=== PATIENT | female | born 1975 | race Caucasian/White ===

== ENCOUNTER 2017-08-03 12:47 | Observation (INO) | payer BC ==
--- NOTE | 2017-08-03 13:09 | ER Document Report ---
ED Medical Screen (RME) - General Chief Complaint: Chest Pain Stated Complaint: CHEST PAIN Time Seen by Provider: 08/03/17 13:09 Notes: Patient had a rather sudden onset of chest pain this morning. Has had a history of reflux but this felt different. Had a tightness in the center portion of her chest which has not gone away. Still feels heavy. Patient does not know her mother's past medical history. Her father suddenly of a heart attack at the age of 63. Grandmother also of a heart attack at unknown age. Patient has a history of lupus. 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 TRAVEL OUTSIDE OF THE [place] IN LAST 30 DAYS: No - Related Data Allergies/Adverse Reactions: Penicillins Allergy (Verified 08/03/17 13:07) Home Medications: Current Home Medications No Home Medications 08/03/17 [History] Physical Exam - Vital signs Vitals: Temp Pulse Resp BP Pulse Ox 98.2 F 88 20 130/81 H 98 08/03/17 13:00 08/03/17 13:00 08/03/17 13:00 08/03/17 13:00 08/03/17 13:00 Course - Re-evaluation Re-evalutation: 08/03/17 13:28 I have greeted and performed a rapid initial assessment of this patient. A comprehensive ED assessment and evaluation of the patient, analysis of test results and completion of the medical decision making process will be conducted by additional ED providers. Initial orders started. Cardiac monitoring ordered. - Vital Signs Vital signs: Temp Pulse Resp BP Pulse Ox 98.2 F 88 20 130/81 H 98 08/03/17 13:00 08/03/17 13:00 08/03/17 13:00 08/03/17 13:00 08/03/17 13:00
[2017-08-03] MEDS ORDERED: ASPIRIN 81 MG TABLET, CHEWABLE PO ONE (13:25)
[2017-08-03 14:12] LABS: ABSOLUTE BASOPHILS # (AUTO) 0.1 10^3/uL (0.0-0.2); ABSOLUTE EOSINOPHILS # (AUTO) 0.1 10^3/uL (0.0-0.6); ABSOLUTE LYMPHOCYTES (AUTO) 2.3 10^3/uL (0.5-4.7); ABSOLUTE MONOCYTES (AUTO) 0.7 10^3/uL (0.1-1.4); ABSOLUTE NEUT (AUTO) 5.7 10^3/uL (1.7-8.2); BASOPHILS % (AUTO) 1.3 % (0-2); EOSINOPHILS % (AUTO) 1.7 % (0-6); HEMATOCRIT 38.8 % (36.0-47.0); HEMOGLOBIN 13.3 g/dL (12.0-15.5); HGB HCT DIFFERENCE 1.1; LYMPHOCYTES % (AUTO) 25.9 % (13-45); MEAN CORPUSCULAR HGB CONC 34.3 g/dL (32.0-36.0); MEAN CORPUSCULAR VOLUME 93 fl (80-97); MONOCYTES % (AUTO) 7.4 % (3-13); RED BLOOD COUNT 4.16 10^6/uL (3.72-5.28); RED CELL DISTRIBUTION WIDTH 12.8 % (11.5-14.0); SEGMENTED NEUTROPHILS % (AUTO) 63.7 % (42-78); WHITE BLOOD COUNT 8.9 10^3/uL (4.0-10.5)
[2017-08-03] MEDS ORDERED: LIDOCAINE 2% VISCOUS SOLN 20 ML UDCUP PO ONE ×2 (14:23→17:00)
[2017-08-03] MEDS ORDERED: MAG HYDROX/AL HYDROX/SIMETH SUSP 30 ML UDCUP PO ONE ×2 (14:23→17:00)
[2017-08-03] MEDS ORDERED: METOCLOPRAMIDE HCL ORAL SOLN 10 MG/10 ML UDCUP PO ONE ×2 (14:23→17:00)
[2017-08-03 14:36] LABS: AMORPHOUS SEDIMENT,URINE TRACE /HPF; APPEARANCE,URINE SLIGHTLY-CLOUDY; BILIRUBIN,URINE NEGATIVE (NEGATIVE); GLUCOSE, URINE NEGATIVE (NEGATIVE); KETONES,URINE NEGATIVE (NEGATIVE); LEUKOCYTE ESTERASE,URINE TRACE (NEGATIVE); NITRITE,URINE NEGATIVE (NEGATIVE); PROTEIN,URINE NEGATIVE (NEGATIVE); URINE SPECIFIC GRAVITY 1.019; UROBILINOGEN,URINE NEGATIVE mg/dL (<2.0)
--- NOTE | 2017-08-03 14:36 | RADIOLOGY REPORT (SQ) ---
EXAM DESCRIPTION: CHEST PA/LAT COMPLETED DATE/TIME: 08/03/2017 2:24 pm REASON FOR STUDY: chest pain COMPARISON: None. EXAM PARAMETERS: NUMBER OF VIEWS: two views TECHNIQUE: Digital Frontal and Lateral radiographic views of the chest acquired. RADIATION DOSE: NA LIMITATIONS: none FINDINGS: LUNGS AND PLEURA: No opacities, masses or pneumothorax. No pleural effusion. MEDIASTINUM AND HILAR STRUCTURES: No masses or contour abnormalities. HEART AND VASCULAR STRUCTURES: Heart normal size. No evidence for failure. BONES: No acute findings. HARDWARE: None in the chest. OTHER: No other significant finding. IMPRESSION: NO SIGNIFICANT RADIOGRAPHIC FINDING IN THE CHEST. TECHNICAL DOCUMENTATION: JOB ID: [id number] [employer]- All Rights Reserved
--- NOTE | 2017-08-03 14:39 | ER Document Report ---
ED Cardiac - General Chief Complaint: Chest Pain Stated Complaint: CHEST PAIN Time Seen by Provider: 08/03/17 13:09 Mode of Arrival: Ambulatory Information source: Patient Notes: Patient is a 41-year-old female comes emergency room with onset of anterior chest pain since about 9 AM this morning. Patient states that she woke up and just shortly after waking up she started with some anterior chest pain. She states that she has been taking Tums for the past several days because of what she felt was heartburn. She also states that she has just returned back from a business trip to [place] where she was in conferences all day and flew back this past Monday. Patient states that over the course of her last couple days there her lower extremities well just slightly. On Monday morning however bilateral lower extremities were much more swollen and she had pain in the back of her calves. This lasted for a couple of days and patient actually has set up an appointment with her primary care provider Dr. Padilla that is out of da because of this swelling. Currently patient has no swelling in her lower extremities and she states that it started getting better yesterday. She has had this actual anterior chest pain now for the last 48 hours and she has been taking Tums for it. She indicates her pain is in the left upper chest and it has been constant. Currently it is a 4 out of 10. She also states she gets slightly short of breath with it at its onset and had some sweatiness or clamminess at the same time. Father has the only cardiac history he at 63 of a massive NM. Patient also states that while she was experiencing this discomfort she had on her couple watch and it measured her heart rate for about 5 minutes at 143 bpm. This stayed pretty consistent patient also informed me that she has a history of lupus TRAVEL OUTSIDE OF THE [place] IN LAST 30 DAYS: No - HPI Patient complains to provider of: Chest pain, Shortness of breath Was the onset of pain: Sudden When did pain begin: Midsternal area Is the pain a: New problem Quality of pain: Moderate, Cramping, Indigestion, Pressure, Tightness Chest pain radiation location: denies: Left jaw, Left arm, Left shoulder, Right jaw, Right arm, Right shoulder, Back, Neck, None Severity now: Moderate Pain level currently: 3 Chest pain precipitating factors: Physical Exertion Cardiac risk factors: + Family history Positive cardiac history: No Associated symptoms: Nausea/vomiting Relieved by: Nothing. denies: Rest, Oxygen, NTG, NSAIDs, Leaning forward, Antacids, Other Similar symptoms previously: No Recently seen / treated by doctor: No - Related Data Allergies/Adverse Reactions: Penicillins Allergy (Verified 08/03/17 13:07) Home Medications: Current Home Medications No Home Medications 08/03/17 [History] Past Medical History - Social History Smoking Status: Never Smoker Cigarette use (# per day): No Chew tobacco use (# tins/day): No Smoking Education Provided: No Frequency of alcohol use: Occasional Drug Abuse: None Family History: CAD, Hyperlipidemia, Hypertension Patient has suicidal ideation: No Patient has homicidal ideation: No Renal/ Medical History: Denies: Hx Peritoneal Dialysis Physical Exam - Vital signs Vitals: Temp Pulse Resp BP Pulse Ox 98.2 F 88 20 130/81 H 98 08/03/17 13:00 08/03/17 13:00 08/03/17 13:00 08/03/17 13:00 08/03/17 13:00 Interpretation: Hypertensive - General General appearance: Alert, Other - Appears concerned - HEENT Head: Normocephalic, Atraumatic Eyes: Normal Tympanic membrane: Normal. No: Bulging, Hemotympanum, Injected, Loss of landmarks, Perforation, Purulent effusion, Retracted, Serous effusion, Other Sinus: Normal Nasal: Normal Mucous membranes: Moist Pharynx: Normal Neck: Normal - Respiratory Respiratory status: No respiratory distress Chest status: Nontender, Other - Examination of patient's chest shows that there is no reproducible tenderness against resistance moves. She has no tenderness intercostally as per palpation. Breath sounds: Normal, Decreased air movement. No: Nonproductive cough, Productive cough, Rales, Rhonchi, Stridor, Wheezing, Other Chest palpation: Normal - Cardiovascular Rhythm: Regular Heart sounds: Normal auscultation Murmur: No - Abdominal Inspection: Normal Distension: No distension Bowel sounds: Normal Organomegaly: No organomegaly - Extremities General upper extremity: Normal inspection General lower extremity: Normal inspection, Other - Current examination patient' s bilateral lower extremities shows no sign of edema or swelling. She has 2+ dorsalis pedal pulses and posterior tibial pulses has good popliteal pulse. Femoral pulses also palpated in is 2+. Knee: Normal Calf: Normal, Nontender Ankle: Normal Foot: Normal - Neurological Cognition: Normal Orientation: AAOx4 [place] Coma Scale Eye Opening: Spontaneous [place] Coma Scale Verbal: Oriented [place] Coma Scale Motor: Extensor Response [place] Coma Scale Total: 11 Cranial nerves: Normal Course - Vital Signs Vital signs: Temp Pulse Resp BP Pulse Ox 98.2 F 88 16 129/94 H 100 08/03/17 13:00 08/03/17 13:00 08/03/17 14:45 08/03/17 14:45 08/03/17 14:44 - Laboratory Result Diagrams: 08/03/17 13:59 08/03/17 13:59 Laboratory results interpreted by me: 08/03/17 08/03/17 13:30 13:59 Chloride 108 H Cholesterol 214.30 H LDL Cholesterol Direct 134 H Ur Leukocyte Esterase TRACE H - Diagnostic Test Radiology reviewed: Reports reviewed - Radiology report of single view chest showed no acute findings - EKG Interpretation by Me EKG shows normal: Sinus rhythm Rate: Normal - 85 Rhythm: NSR - Transfer of Care Notes: 08/03/17 14:49 Patient was given GI cocktail 08/03/17 16:15 Patient stay was essentially unremarkable. She was given a GI cocktail her pain decreased slightly but not with any significance down to a 2-1/2 to 3 out of 10 and she was originally at 4. I discussed the case with Dr. Jeffrey and given patient's risk factors which are 1 obesity 2 lupus 3 elevated cholesterol with an elevated LDL 4. father suddenly of a NM at age 63 and this was attributed to her father having MTFR disease and patient had a genetic test run for this which showed she has recessive trait for the MTHFR which predisposes her to elevated homocysteine levels and potentially early heart disease. Homocysteine level was ordered but is a send out. Currently patient still has discomfort at around a 2-3/10 Discharge - Discharge Condition: Good Disposition: ADMITTED OBSERVATION Admitting Provider: Dr Mead Unit Admitted: Telemetry Referrals: DEQUAN PADILLA DO [Primary Care Provider] - Follow up as needed
[2017-08-03 14:41] LABS: ALANINE AMINOTRANSFERASE 29 U/L (9-52); ALBUMIN 3.8 g/dL (3.5-5.0); ALKALINE PHOSPHATASE 71 U/L (38-126); ANION GAP 9 (5-19); ASPARTATE AMINO TRANSFERASE 22 U/L (14-36); BILIRUBIN,DIRECT 0.3 mg/dL (0.0-0.4); BILIRUBIN,TOTAL 0.3 mg/dL (0.2-1.3); BLOOD UREA NITROGEN 15 mg/dL (7-20); C-REACTIVE PROTEIN 9.9 mg/L (<10.0); CALCIUM 9.7 mg/dL (8.4-10.2); CARBON DIOXIDE 27 mmol/L (22-30); CHLORIDE 108 mmol/L (98-107); CREATINE KINASE 39 U/L (30-135); CREATININE RESULT 0.81 mg/dL (0.52-1.25); Direct HDL 66 mg/dL (>40); GLUCOSE 77 mg/dL (75-110); POTASSIUM 4.4 mmol/L (3.6-5.0); SODIUM 144.4 mmol/L (137-145); TOTAL PROTEIN 6.4 g/dL (6.3-8.2); TRIGLYCERIDES 112 mg/dL (<150)
[2017-08-03 14:50] LABS: CREATINE KINASE MB 0.32 ng/mL (<4.55); DIRECT LDL 134 mg/dL (<100)
[2017-08-03 14:54] LABS: TROPONIN I < 0.012 ng/mL
--- NOTE | 2017-08-03 15:46 | EKG REPORT ---
SEVERITY:- NORMAL ECG - SINUS RHYTHM : Confirmed by: Mimi Suarez MD 03-Aug-2017 15:45:37
[2017-08-03] MEDS ORDERED: ONDANSETRON HCL INJ/PF 4 MG/2 ML SDV IV PRN (16:52)
[2017-08-03] MEDS ORDERED: ONDANSETRON 4 MG TAB.RAPDIS PO PRN (16:52)
[2017-08-03] MEDS ORDERED: ACETAMINOPHEN 325 MG TABLET PO PRN (16:52)
--- NOTE | 2017-08-03 17:12 | PDOC H&P ---
History of Present Illness Admission Date/PCP: DEQUAN PADILLA DO Patient complains of: Chest pain History of Present Illness: SARA HERRERA is a 41 year old female with no history of coronary artery disease but a family history with a father at age 68 from heart disease who presents with chest pain. Patient reports that she was cooking in the kitchen and began to experience a gripping substernal chest pressure. She reported it was 10 out of 10 and did not radiate. She reports that this lasted approximately 3 minutes and then resolved. The patient wears a smart watch that required her pulse as being 143 during this episode. The patient has never had episodes of tachycardia. Patient reports that she has had intermittent episodes over the last 3 days of acid reflux symptoms but this was different. The patient denies any nausea vomiting or diaphoresis associated with this. She denies any dyspnea on exertion. The patient currently reports that she is pain-free. She denies any cough or shortness of breath. She denies any orthopnea or PND. Denies any lower extremity edema. The patient denies any substance abuse. She does not smoke. Patient has never had episodes of tachycardia previously. Past Medical History Past Medical History: Lupus. MTHFR recessive gene carrier Cardiac Medical History: Reports: None Pulmonary Medical History: Reports: None EENT Medical History: Reports: None Neurological Medical History: Reports: None Endocrine Medical History: Reports: None Renal/ Medical History: Reports: None Malignancy Medical History: Reports: None GI Medical History: Reports: Gastroesophageal Reflux Disease Musculoskeltal Medical History: Reports: None Skin Medical History: Reports: None Psychiatric Medical History: Reports: None Traumatic Medical History: Reports: None Hematology: Reports: None Infectious Medical History: Reports: None Past Surgical History Past Surgical History: Reports: Cholecystectomy, Other - 1 fallopian tube removed after tubal . Multiple miscarriages Social History Information Source: Patient Lives with: Spouse/Significant other Smoking Status: Never Smoker Frequency of Alcohol Use: Rare Hx Recreational Drug Use: No Drugs: None Hx Prescription Drug Abuse: No - Advance Directive Resuscitation Status: Full Code Surrogate healthcare decision maker:: Family History Family History: CAD, Hyperlipidemia, Hypertension Family History: Father at age 68 had coronary artery disease. Mother's health history is unknown. Parental Family History Reviewed: Yes Children Family History Reviewed: No Sibling(s) Family History Reviewed.: No Medication/Allergy Home Medications: No Home Medications 08/03/17 Allergies/Adverse Reactions: Penicillins Allergy (Verified 08/03/17 13:07) Review of Systems Constitutional: PRESENT: weight gain. ABSENT: chills, fever(s), headache(s) Eyes: ABSENT: visual disturbances Ears: ABSENT: hearing changes Cardiovascular: PRESENT: chest pain, palpitations. ABSENT: dyspnea on exertion , edema, orthropnea Respiratory: ABSENT: cough, dyspnea, hemoptysis Gastrointestinal: PRESENT: heartburn Genitourinary: ABSENT: dysuria, hematuria Musculoskeletal: ABSENT: joint swelling Integumentary: ABSENT: rash, wounds Neurological: ABSENT: abnormal gait, abnormal speech, confusion, dizziness, focal weakness, syncope Psychiatric: ABSENT: anxiety, depression Endocrine: ABSENT: cold intolerance, heat intolerance, polydipsia, polyuria Hematologic/Lymphatic: ABSENT: easy bleeding, easy bruising Physical Exam Vital Signs: Temp Pulse Resp BP Pulse Ox 98.2 F 88 16 129/94 H 100 08/03/17 13:00 08/03/17 13:00 08/03/17 14:45 08/03/17 14:45 08/03/17 14:44 Intake & Output 08/02/17 08/03/17 08/04/17 06:59 06:59 06:59 Weight 80 kg General appearance: PRESENT: no acute distress, well-developed, well-nourished Head exam: PRESENT: atraumatic, normocephalic Eye exam: PRESENT: conjunctiva pink, EOMI, PERRLA. ABSENT: scleral icterus Ear exam: PRESENT: normal external ear exam Mouth exam: PRESENT: moist, tongue midline Neck exam: ABSENT: carotid bruit, JVD, lymphadenopathy, thyromegaly Respiratory exam: PRESENT: clear to auscultation sergei. ABSENT: rales, rhonchi, wheezes Cardiovascular exam: PRESENT: RRR. ABSENT: diastolic murmur, rubs, systolic murmur Pulses: PRESENT: normal dorsalis pedis pul Vascular exam: PRESENT: normal capillary refill GI/Abdominal exam: PRESENT: normal bowel sounds, soft. ABSENT: distended, guarding, mass, organolmegaly, rebound, tenderness Rectal exam: PRESENT: deferred Extremities exam: ABSENT: calf tenderness, clubbing, pedal edema Neurological exam: PRESENT: alert, awake, oriented to person, oriented to place , oriented to time, oriented to situation, CN II-XII grossly intact. ABSENT: motor sensory deficit Psychiatric exam: PRESENT: appropriate affect Skin exam: PRESENT: dry, intact, warm. ABSENT: cyanosis, rash Results Laboratory Results: 08/03/17 13:59 08/03/17 13:59 08/03/17 08/03/17 08/03/17 13:30 13:59 13:59 WBC 8.9 RBC 4.16 Hgb 13.3 Hct 38.8 MCV 93 MCH 32.0 MCHC 34.3 RDW 12.8 Plt Count 330 Seg Neutrophils % 63.7 Lymphocytes % 25.9 Monocytes % 7.4 Eosinophils % 1.7 Basophils % 1.3 Absolute Neutrophils 5.7 Absolute Lymphocytes 2.3 Absolute Monocytes 0.7 Absolute Eosinophils 0.1 Absolute Basophils 0.1 Sodium 144.4 Potassium 4.4 Chloride 108 H Carbon Dioxide 27 Anion Gap 9 BUN 15 Creatinine 0.81 Est GFR ( Amer) > 60 Est GFR (Non-Af Amer) > 60 Glucose 77 Calcium 9.7 Total Bilirubin 0.3 AST 22 ALT 29 Alkaline Phosphatase 71 C-Reactive Protein 9.9 Total Protein 6.4 Albumin 3.8 Triglycerides 112 Cholesterol 214.30 H LDL Cholesterol Direct 134 H VLDL Cholesterol 22.0 HDL Cholesterol 66 Lipase 129.0 TSH Urine Color YELLOW Urine Appearance SLIGHTLY-CLOUDY Urine pH 6.0 Ur Specific [place] 1.019 Urine Protein NEGATIVE Urine Glucose (UA) NEGATIVE Urine Ketones NEGATIVE Urine Blood NEGATIVE Urine Nitrite NEGATIVE Ur Leukocyte Esterase TRACE H Urine WBC (Auto) 2 Urine RBC (Auto) 1 08/03/17 13:59 WBC RBC Hgb Hct MCV MCH MCHC RDW Plt Count Seg Neutrophils % Lymphocytes % Monocytes % Eosinophils % Basophils % Absolute Neutrophils Absolute Lymphocytes Absolute Monocytes Absolute Eosinophils Absolute Basophils Sodium Potassium Chloride Carbon Dioxide Anion Gap BUN Creatinine Est GFR ( Amer) Est GFR (Non-Af Amer) Glucose Calcium Total Bilirubin AST ALT Alkaline Phosphatase C-Reactive Protein Total Protein Albumin Triglycerides Cholesterol LDL Cholesterol Direct VLDL Cholesterol HDL Cholesterol Lipase TSH 1.21 Urine Color Urine Appearance Urine pH Ur Specific [place] Urine Protein Urine Glucose (UA) Urine Ketones Urine Blood Urine Nitrite Ur Leukocyte Esterase Urine WBC (Auto) Urine RBC (Auto) 08/03/17 08/03/17 13:59 13:59 Creatine Kinase 39 CK-MB (CK-2) 0.32 Troponin I < 0.012 Impressions: Chest X-Ray 08/03/17 13:25 IMPRESSION: NO SIGNIFICANT RADIOGRAPHIC FINDING IN THE CHEST. Assessment & Plan - Diagnosis (1) Chest pain Is this a current diagnosis for this admission?: Yes Plan: The patient had the chest pain while she was working in the kitchen. Her smart watch recorded a heart rate of 143. This only lasted for very short period of time. I am suspicious that she had an episode of SVT. Patient has a family history of coronary disease but has no other risk factors are soft. Will monitor on telemetry and check serial cardiac enzymes. If those were all negative she can be evaluated as an outpatient as to whether or not she needs a stress test. Will start on aspirin. She also has a history of acid reflux and we will give GI cocktail to see if that helps any. (2) Lupus Is this a current diagnosis for this admission?: Yes Plan: The patient is not currently on any medications for her lupus. (3) Gastroesophageal reflux disease Is this a current diagnosis for this admission?: Yes Plan: We will give GI cocktail. - Time Time Spent: 50 to 70 Minutes - Plan Summary Plan Summary: Patient will be admitted as an observation.
[2017-08-03 20:42] LABS: CREATINE KINASE MB < 0.22 ng/mL (<4.55); TROPONIN I < 0.012 ng/mL
[2017-08-04 03:01] LABS: CREATINE KINASE MB < 0.22 ng/mL (<4.55); TROPONIN I < 0.012 ng/mL
[2017-08-04 08:36] VITALS: BP 106/78
[2017-08-04 09:18] LABS: CREATINE KINASE MB < 0.22 ng/mL (<4.55); TROPONIN I < 0.012 ng/mL
[2017-08-04] MEDS ORDERED: ASPIRIN 81 MG TABLET, ENT COATED PO SCH (10:00)
--- NOTE | 2017-08-04 10:36 | PDOC DISCHARGE SUMMARY ---
General - Admit/Disc Date/PCP Admission Date/Primary Care Provider: 08/03/17 18:54 DEQUAN PADILLA, Discharge Date: 08/04/17 - Discharge Diagnosis (1) Chest pain Is this a current diagnosis for this admission?: Yes Summary: Most likely related to the tachycardia she had prior to presentation (2) Lupus Is this a current diagnosis for this admission?: Yes (3) Gastroesophageal reflux disease Is this a current diagnosis for this admission?: Yes - Additional Information Resuscitation Status: Full Code Discharge Diet: Regular Discharge Activity: Activity As Tolerated Home Medications: Aspirin [Ecotrin 81 mg EC Tablet] 81 mg PO DAILY tabec 08/04/17 History of Present Illness History of Present Illness: SARA HERRERA is a 41 year old female with no history of coronary artery disease but a family history with a father at age 68 from heart disease who presents with chest pain. Patient reports that she was cooking in the kitchen and began to experience a gripping substernal chest pressure. She reported it was 10 out of 10 and did not radiate. She reports that this lasted approximately 3 minutes and then resolved. The patient wears a smart watch that required her pulse as being 143 during this episode. The patient has never had episodes of tachycardia. Patient reports that she has had intermittent episodes over the last 3 days of acid reflux symptoms but this was different. The patient denies any nausea vomiting or diaphoresis associated with this. She denies any dyspnea on exertion. The patient currently reports that she is pain-free. She denies any cough or shortness of breath. She denies any orthopnea or PND. Denies any lower extremity edema. The patient denies any substance abuse. She does not smoke. Patient has never had episodes of tachycardia previously. Hospital Course Hospital Course: 41-year-old female who presented with some atypical chest pain. The patient had been working in the kitchen and began experiencing chest discomfort. She had a smart watch that was monitoring her pulse and documented a pulse of 143 for short period of time and then resolved. She was admitted and monitored on telemetry. She had no cardiac arrhythmias. She had negative cardiac enzymes. Her chest pain may have been related to the tachycardia. Is unclear whether this was an SVT or just sinus tachycardia or some other arrhythmia. Given this has been only one time and we have not captured on EKG we will just have her monitor herself. If she has another episode she would benefit from a Holter monitor and possibly stress testing. She is started on aspirin and no other change in her medication regimen. Physical Exam Vital Signs: Temp Pulse Resp BP Pulse Ox 97.9 F 67 16 106/78 96 08/04/17 08:51 08/04/17 08:51 08/04/17 08:51 08/04/17 08:51 08/04/17 08:51 Intake & Output 08/03/17 08/04/17 08/05/17 06:59 06:59 06:59 Intake Total 240 Output Total 300 Balance -60 Weight 80 kg General appearance: PRESENT: no acute distress Eye exam: PRESENT: conjunctiva pink. ABSENT: scleral icterus Mouth exam: PRESENT: moist, tongue midline Neck exam: ABSENT: JVD Respiratory exam: PRESENT: clear to auscultation sergei. ABSENT: rales, rhonchi, wheezes Cardiovascular exam: PRESENT: RRR. ABSENT: diastolic murmur, rubs, systolic murmur GI/Abdominal exam: PRESENT: normal bowel sounds, soft. ABSENT: distended, guarding, mass, organolmegaly, rebound, tenderness Extremities exam: ABSENT: calf tenderness, clubbing, pedal edema Neurological exam: PRESENT: alert, awake, oriented to person, oriented to place , oriented to time, oriented to situation, CN II-XII grossly intact. ABSENT: motor sensory deficit Psychiatric exam: PRESENT: appropriate affect Skin exam: PRESENT: dry, intact, warm. ABSENT: cyanosis, rash Results Laboratory Results: 08/03/17 08/03/17 08/04/17 20:00 20:00 02:05 Creatine Kinase 29 L 26 L CK-MB (CK-2) < 0.22 Troponin I < 0.012 08/04/17 08/04/17 08/04/17 02:05 08:20 08:20 Creatine Kinase 31 CK-MB (CK-2) < 0.22 < 0.22 Troponin I < 0.012 < 0.012 Impressions: Chest X-Ray 08/03/17 13:25 IMPRESSION: NO SIGNIFICANT RADIOGRAPHIC FINDING IN THE CHEST. Qualifiers PATEINT BEING DISCHARGED WITH ANY OF THE FOLLOWING DIAGNOSIS?: No Plan Discharge Plan: Patient is discharged home in stable condition. Follow-up with primary care in 2 weeks. Time Spent: Less than 30 Minutes
== END 2017-08-04 09:14 | disposition home or self-care (01) ==
LOC: ER 12:47 → EH 18:54 → 4N 20:09
PROVIDERS: ADMIT Internal Medicine; ATTEND Internal Medicine
DX: R07.89 Other chest pain (principal); M32.9 Systemic lupus erythematosus, unspecified; K21.9 Gastro-esophageal reflux disease without esophagitis; R00.2 Palpitations; R06.02 Shortness of breath; R03.0 Elevated blood-pressure reading, without diagnosis of hypertension; E66.9 Obesity, unspecified; E78.00 Pure hypercholesterolemia, unspecified; Z82.49 Family history of ischemic heart disease and other diseases of the circulatory system; Z90.49 Acquired absence of other specified parts of digestive tract; Z14.8 Genetic carrier of other disease; Z68.31 Body mass index [BMI] 31.0-31.9, adult
CPT/HCPCS: 93005; 99285; 36415 ×2; 82553 ×2; 82550 ×2; 83690; 84443; 85025; 86140; 83090; 80053; 81001; 84484 ×2; 85379; 80061; 71020; 93010; G0378 ×3; J3490 ×2